=== PATIENT | female | born 1975 | race African-American/Black ===

== ENCOUNTER 2020-10-15 18:56 | Emergency (ER) | payer MEDICAID ==
[~2020-10-15] VITALS: Ht 170.2 cm; Wt 66.0 kg
[2020-10-15] MEDS ORDERED: IBUPROFEN 600MG TABLET PO ONE (20:15)
[2020-10-15] MEDS ORDERED: IBUP-2028 MT (20:47)
[2020-10-15 21:53] VITALS: BP 145/89
== END 2020-10-15 21:54 | disposition home or self-care (01) ==
LOC: ER 18:56
DX: S93.492A Sprain of other ligament of left ankle, initial encounter (principal); S93.491A Sprain of other ligament of right ankle, initial encounter; W18.39XA Other fall on same level, initial encounter; Y93.89 Activity, other specified; Y92.89 Other specified places as the place of occurrence of the external cause; Y99.8 Other external cause status
CPT/HCPCS: 73610; 99283; Z7610